=== PATIENT | female | born 1955 | race African-American/Black ===

== ENCOUNTER → 2021-08-29 | Day surgery (SDC) | payer MEDICARE ==
[~2021-08-29] VITALS: Ht 175.3 cm; Wt 121.6 kg
[~2021-08-29] MED LIST: ASPIRIN EC81 MG PO; COQ-1030 MG PO; LIPITOR40 MG PO; MOBIC7.5 MG PO; PROZAC20 MG PO; SYNTHROID25 MCG PO; TRIAMTERENE-HC1 EACH PO; VENLAFAXINE H37.5 MG PO; VITAMIN B-121000 MC1 PO; VITAMIN D310 MC3 PO
== END | disposition home or self-care (01) ==
LOC: FAS 08:30
DX: Z12.11 Encounter for screening for malignant neoplasm of colon (principal); K58.9 Irritable bowel syndrome, unspecified; Q43.8 Other specified congenital malformations of intestine; M19.90 Unspecified osteoarthritis, unspecified site; I10 Essential (primary) hypertension; E78.00 Pure hypercholesterolemia, unspecified; E03.9 Hypothyroidism, unspecified; J44.9 Chronic obstructive pulmonary disease, unspecified; Z53.8 Procedure and treatment not carried out for other reasons; Z86.16 Personal history of COVID-19; Z87.891 Personal history of nicotine dependence; Z79.82 Long term (current) use of aspirin; Z79.890 Hormone replacement therapy; Z79.899 Other long term (current) drug therapy; Z99.81 Dependence on supplemental oxygen
CPT/HCPCS: 74270; J1610; J2250; J2704; J7120